=== PATIENT | female | born 1970 | race Asian ===

== ENCOUNTER 2017-08-15 14:28 | Emergency (ER) | payer SELFPAY ==
[~2017-08-15] VITALS: Ht 160 cm; Wt 52.2 kg
[2017-08-15] MEDS ORDERED: HYDROcodone-ACET 10/325MG TAB PO ONE (16:15)
[2017-08-15 18:45] VITALS: BP 133/77
== END 2017-08-15 19:12 | disposition home or self-care (01) ==
LOC: ER 14:28
DX: S62.102A Fracture of unspecified carpal bone, left wrist, initial encounter for closed fracture (principal); S40.011A Contusion of right shoulder, initial encounter; S90.02XA Contusion of left ankle, initial encounter; S20.211A Contusion of right front wall of thorax, initial encounter; Z88.0 Allergy status to penicillin; V43.62XA Car passenger injured in collision with other type car in traffic accident, initial encounter; Y93.89 Activity, other specified; Y99.8 Other external cause status; Y92.410 Unspecified street and highway as the place of occurrence of the external cause
CPT/HCPCS: 29125; 71101; 73030; 73110; 73610